=== PATIENT | male | born 1995 | race Caucasian/White ===

== ENCOUNTER → 2016-11-25 | Outpatient (CLI) | payer MEDICAID | LOC: CIMAGING 09:21 | PROVIDERS: ATTEND Physician Assistant | DX: D40.11 Neoplasm of uncertain behavior of right testis (principal) | CPT/HCPCS: 76870-PO ==

== ENCOUNTER → 2016-12-03 | Outpatient (CLI) | payer MEDICAID | LOC: FIMAGING 13:13 | PROVIDERS: ATTEND Internal Medicine Hematology & Oncology | DX: Z12.2 Encounter for screening for malignant neoplasm of respiratory organs (principal); C62.90 Malignant neoplasm of unspecified testis, unspecified whether descended or undescended ==

== ENCOUNTER → 2016-12-30 | Outpatient (CLI) | payer MEDICAID ==
[~2016-12-30] MED LIST: IOPAMIDOL (ISOVUE-300) 100 ML BTL IV ONE
== END ==
LOC: FIMAGING 12:31
PROVIDERS: ATTEND Internal Medicine Hematology & Oncology
DX: C62.90 Malignant neoplasm of unspecified testis, unspecified whether descended or undescended (principal)
CPT/HCPCS: Q9967

== ENCOUNTER 2017-03-01 20:16 | Emergency (ER) | payer MEDICAID ==
[2017-03-01 20:33] VITALS: RESP 16; TEMP 98.2
--- NOTE | 2017-03-01 21:06 | EDPHY ---
H & P Stated Complaint: cancer patient; feels dehydrated and anxious Time Seen by Provider: 03/01/17 20:52 HPI/ROS: CHIEF COMPLAINT: Feels dehydrated HISTORY OF PRESENT ILLNESS: This is a 21-year-old male undergoing chemotherapy for testicular cancer who presents concerned that he might be dehydrated. He also feels somewhat anxious, as if something is wrong. His last chemotherapy treatment was 1 week ago and he is due for another treatment tomorrow. He has had vomiting, which is usual for him during these treatments. He has not had diarrhea. He is being treated for thrush and reports a sore throat. He denies headache, cough, shortness of breath, chest pain, abdominal pain, back pain, joint pain, and dysuria. He has not had fever. REVIEW OF SYSTEMS: A ten point review of systems was performed and is negative with the exception of the items mentioned in the HPI. - Personal History Current Tetanus/Diphtheria Vaccine: No - Medical/Surgical History Hx Asthma: No Hx Chronic Respiratory Disease: Yes Hx Diabetes: No Hx Cardiac Disease: No Hx Renal Disease: No Hx Cirrhosis: No Hx Alcoholism: No Hx HIV/AIDS: No Hx Splenectomy or Spleen Trauma: No Other PMH: PSHx: orchiectomy. PMHx: testicular stage II, SAMREEN - Social History Smoking Status: Former smoker Additional Social History: He is here with his parents. He was a student but is taking time off. - Physical Exam Exam: General Appearance: Alert. Vital signs reviewed and normal. Head: Bald. Eyes: Pupils equal and round, no conjunctival injection, no discharge. Anicteric. ENT, Mouth: Mucous membranes are slightly dry, no oropharyngeal erythema or edema. No thrush visualized. Neck: No lymphadenopathy, supple. Respiratory: Lungs are clear to auscultation; no wheezes, rales, or rhonchi. Cardiovascular: Regular rate and rhythm; no murmur, rub, or gallop. Gastrointestinal: Abdomen is soft and nontender, no masses or organomegaly, bowel sounds normal. Skin: Warm and dry, no rashes on exposed skin, normal color. Back: Nontender to palpation over the thoracolumbar spine. No CVAT. Extremities: No lower extremity edema, no calf tenderness or swelling. Neurological: Alert and oriented. Moving all four extremities easily and equally. Psychiatric: Normal affect. Constitutional: Initial Vital Signs Temperature (C) 36.8 C 03/01/17 20:28 Heart Rate 68 03/01/17 20:28 Respiratory Rate 16 03/01/17 20:28 Blood Pressure 112/70 03/01/17 20:28 O2 Sat (%) 98 03/01/17 20:28 O2 Delivery Mode Room Air Home Medications: Medication Instructions Recorded BLEOMYCIN SULFATE 03/01/17 CISplatin 03/01/17 Etoposide Phosphate 03/01/17 Medical Decision Making ED Course/Re-evaluation: 10:10 p.m.. 1 L normal saline administered IV--I think it is reasonable to rehydrate this patient who has had nausea and vomiting secondary to chemotherapy. He did not have vomiting in the department. Labs reviewed. An reported the patient and family. They are reassured. Patient re-evaluated. He is sitting up in bed, smiling. He states that he feels much better and would like to go home. I feel that this is appropriate and he is being discharged in stable condition. Xavier's white blood cell count is 3.49, up from 2.6 on February 23. He is not febrile and I find no evidence of infection. Differential Diagnosis: I considered a differential diagnosis that includes but is not limited to neutropenic fever, nausea vomiting, dehydration, situational anxiety. - Data Points Laboratory Results: Laboratory Results 03/01/17 21:45 03/01/17 21:00 Departure - Departure Disposition: Home, Routine, Self-Care Clinical Impression: Dehydration, mild Condition: Good Instructions: Dehydration (ED) Additional Instructions: Keep your appointment tomorrow. Referrals: LELO CALDWELL [Other] - As per Instructions
[2017-03-01 21:27] LABS: ANION GAP 12 mEq/L (8-16); CALCIUM 9.7 mg/dL (8.5-10.4); CARBON DIOXIDE 23 mEq/l (22-31); CHLORIDE 104 mEq/L (97-110); CREATININE 0.7 mg/dL (0.7-1.3); GLOMERULAR FILTRATION RATE > 60; GLUCOSE 79 mg/dL (70-100); POTASSIUM 4.1 mEq/L (3.5-5.2); SODIUM 139 mEq/L (134-144)
[2017-03-01 21:47] LABS: ADD DIFF? YES; ADD MORPH? NO; ADD SCAN? NO; ATYPICAL LYMPHOCYTE FLAG 90 (0-99); FRAGMENT RBC FLAG 0 (0-99); HEMATOCRIT 37.7 % (40.0-51.0); HEMOGLOBIN 13.1 g/dL (13.7-17.5); LEFT SHIFT FLG 0 (0-99); LIPEMIA HEMOLYSIS FLAG 90 (0-99); MEAN CELL HEMOGLOBIN CONCENTR. 34.7 g/dL (32.4-36.7); MEAN CELL VOLUME 92.2 fL (81.5-99.8); MEAN PLATELET VOLUME 8.7 fL (8.7-11.7); PLATELET CLUMPS FLAG 10 (0-99); PLATELET COUNT 144 10^3/uL (150-400); RED BLOOD CELL COUNT 4.09 10^6/uL (4.40-6.38); RED CELL DISTRIBUTION WIDTH 13.8 % (11.5-15.2)
[2017-03-01 22:19] VITALS: BP 112/78; PULSE 62; O2SAT 95
[2017-03-01 22:19] LABS: PLATELET ESTIMATE DECREASED (ADEQ)
== END 2017-03-01 22:18 | disposition home or self-care (01) ==
DX: E86.0 Dehydration (principal); Z87.891 Personal history of nicotine dependence

== ENCOUNTER 2017-03-07 21:11 | Emergency (ER) | payer MEDICAID ==
[2017-03-07 21:19] VITALS: TEMP 98.2
[2017-03-07] MEDS ORDERED: NS 1,000 ML IV ONE ×2 (21:41→22:07)
[2017-03-07 21:58] LABS: % IMMATURE GRANULYOCYTES 0.4 % (0.0-1.1); ABSOLUTE IMMATURE GRANULOCYTES 0.02 10^3/uL (0.00-0.10); ADD DIFF? NO; ADD MORPH? NO; ADD SCAN? NO; ATYPICAL LYMPHOCYTE FLAG 0 (0-99); FRAGMENT RBC FLAG 0 (0-99); HEMOGLOBIN 14.8 g/dL (13.7-17.5); LEFT SHIFT FLG 0 (0-99); LIPEMIA HEMOLYSIS FLAG 90 (0-99); MEAN CELL HEMOGLOBIN CONCENTR. 35.2 g/dL (32.4-36.7); MEAN CELL VOLUME 90.9 fL (81.5-99.8); PLATELET CLUMPS FLAG 30 (0-99); PLATELET COUNT 141 10^3/uL (150-400); RED BLOOD CELL COUNT 4.62 10^6/uL (4.40-6.38); RED CELL DISTRIBUTION WIDTH 13.5 % (11.5-15.2)
[2017-03-07 22:07] LABS: ANION GAP 12 mEq/L (8-16); CARBON DIOXIDE 24 mEq/l (22-31); CHLORIDE 102 mEq/L (97-110); CREATININE 0.8 mg/dL (0.7-1.3); GLOMERULAR FILTRATION RATE > 60; GLUCOSE 87 mg/dL (70-100); POTASSIUM 4.2 mEq/L (3.5-5.2); SODIUM 138 mEq/L (134-144)
--- NOTE | 2017-03-07 22:12 | EDPHY ---
H & P Stated Complaint: dehydrated dark urine, last chemo Thursday, mild stomach discomfort Time Seen by Provider: 03/07/17 21:58 HPI/ROS: CHIEF COMPLAINT: Dehydration HISTORY OF PRESENT ILLNESS: The patient is a 21-year-old man with a history of testicular cancer status post orchiectomy with metastasis to lymph nodes. He is currently undergoing chemotherapy. He tends to get dehydrated with chemotherapy. He does not feel like drinking water. He was seen here a couple of weeks ago for the same and felt better after hydration. He denies vomiting or diarrhea. He states that his urine has been dark and he has not had much urine. He also states that his mouth is dry. He states that he feels anxious when he is dehydrated. He has received 500 cc IV fluids by nursing protocol states that he already feels much better. No dysuria. No hematuria. REVIEW OF SYSTEMS: Constitutional: See HPI denies: chills, fever, recent illness, recent injury EENTM: See HPI denies: blurred vision, double vision, nose congestion Respiratory: denies: cough, shortness of breath Cardiac: denies: chest pain, irregular heart rate, lightheadedness, palpitations Gastrointestinal/Abdominal: denies: abdominal pain, diarrhea, nausea, vomiting, blood streaked stools Genitourinary: denies: dysuria, frequency, hematuria, pain Musculoskeletal: denies: joint pain, muscle pain Skin: denies: lesions, rash, jaundice, bruising Neurological: denies: headache, numbness, paresthesia, tingling, dizziness, weakness Hematologic/Lymphatic: denies: blood clots, easy bleeding, easy bruising Immunologic/allergic: denies: HIV/AIDS, transplant EXAM: GENERAL: Well-appearing, well-nourished and in no acute distress. HEAD: Atraumatic, normocephalic. EYES: Pupils equal round and reactive to light, extraocular movements intact, sclera anicteric, conjunctiva are normal. ENT: Moderately dry mucous membranes, TMs normal, nares patent, oropharynx clear without exudates. Moist mucous membranes. NECK: Normal range of motion, supple without lymphadenopathy or JVD. LUNGS: Breath sounds clear to auscultation bilaterally and equal. No wheezes rales or rhonchi. HEART: Regular rate and rhythm without murmurs, rubs or gallops. ABDOMEN: Soft, nontender, normoactive bowel sounds. No guarding, no rebound. No masses appreciated. BACK: No CVA tenderness, no spinal tenderness, step-offs or deformities EXTREMITIES: Normal range of motion, no pitting or edema. No clubbing or cyanosis. NEUROLOGICAL: Cranial nerves II through XII grossly intact. Normal speech, normal gait. 5/5 strength, normal movement in all extremities, normal sensation PSYCH: Normal mood, normal affect. SKIN: Warm, dry, normal turgor, no visible rashes or lesions. Source: Patient Exam Limitations: No limitations - Personal History Current Tetanus/Diphtheria Vaccine: Unsure - Medical/Surgical History Hx Asthma: No Hx Chronic Respiratory Disease: Yes Hx Diabetes: No Hx Cardiac Disease: No Hx Renal Disease: No Hx Cirrhosis: No Hx Alcoholism: No Hx HIV/AIDS: No Hx Splenectomy or Spleen Trauma: No Other PMH: PSHx: R orchiectomy. PMHx: testicular stage II, SAMREEN - Family History Significant Family History: No pertinent family hx - Social History Smoking Status: Former smoker Alcohol Use: Sober Drug Use: None Constitutional: Initial Vital Signs Temperature (C) 36.8 C 03/07/17 21:17 Heart Rate 81 03/07/17 21:17 Respiratory Rate 15 03/07/17 21:17 Blood Pressure 111/81 H 03/07/17 21:17 O2 Sat (%) 95 03/07/17 21:17 O2 Delivery Mode Room Air Allergies/Adverse Reactions: meperidine [From Demerol] Allergy (Verified 03/07/17 21:16) Home Medications: Medication Instructions Recorded BLEOMYCIN SULFATE 03/01/17 CISplatin 03/01/17 Etoposide Phosphate 03/01/17 Ativan 03/07/17 Medical Decision Making ED Course/Re-evaluation: 11:00 p.m. the patient is feeling much better after hydration. His lab work is reassuring. He declines further workup or testing at this time and is eager to go home. Differential Diagnosis: Partial list of the Differential diagnosis considered include but were not limited to; dehydration, anxiety and although unlikely based on the history and physical exam, I also considered urinary tract infection, hematuria, gastroenteritis. I discussed these differential diagnoses and the plan with the patient as well as the usual and expected course. The patient understands that the diagnosis is provisional and that in medicine we are not always correct and that further workup is often warranted. Usual and customary warnings were given. All of the patient's questions were answered. The patient was instructed to return to the emergency department should the symptoms at all worsen or return, otherwise to followup with the physician as we discussed. - Data Points Laboratory Results: Laboratory Results 03/07/17 21:35 03/07/17 21:35 Medications Given: Discontinued Medications Sodium Chloride (Ns) 1,000 mls @ 0 mls/hr IV ONCE ONE PRN Reason: Wide Open Stop: 03/07/17 21:42 Last Admin: 03/07/17 21:53 Dose: 1,000 mls Sodium Chloride (Ns) 1,000 mls @ 0 mls/hr IV ONCE ONE; Wide Open PRN Reason: Protocol Stop: 03/07/17 22:08 Last Admin: 03/07/17 22:12 Dose: 1,000 mls Departure - Departure Disposition: Home, Routine, Self-Care Clinical Impression: Dehydration Condition: Fair Instructions: Dehydration (ED) Referrals: STONE,LORRAINE [Other] - As per Instructions
[2017-03-07 23:16] LABS: COLOR YELLOW; LEUKOCYTE ESTERASE,URINE NEGATIVE (NEGATIVE); NITRITE,URINE NEGATIVE (NEGATIVE)
[2017-03-07 23:31] VITALS: BP 118/62; PULSE 71; RESP 16; O2SAT 94
== END 2017-03-07 23:31 | disposition home or self-care (01) ==
DX: E86.0 Dehydration (principal); E86.9 Volume depletion, unspecified; Z87.891 Personal history of nicotine dependence

== ENCOUNTER 2018-06-05 18:39 | Emergency (ER) | payer OTHER ==
--- NOTE | 2018-06-05 19:19 | EDPHY ---
H & P Stated Complaint: red streak going up left arm to his chest. blood drawn 6days ago Time Seen by Provider: 06/05/18 19:11 HPI/ROS: CHIEF COMPLAINT: Left biceps pain HISTORY OF PRESENT ILLNESS: The patient is a 22 year old man who comes to the emergency department complaining of some pain in his left biceps region and axilla. No lumps or bumps. He thought that he noticed some streaking today but it is not currently visible. He had his blood drawn 6 days ago from that antecubital region. He also states that he may have slept on the awkwardly last night. He does not have any paresthesias or numbness or weakness. No neck pain. No headache. No fever. Severity: Mild Modifying factors: None REVIEW OF SYSTEMS: Constitutional: denies: chills, fever, recent illness, recent injury EENTM: denies: blurred vision, double vision, nose congestion Respiratory: denies: cough, shortness of breath Cardiac: denies: chest pain, irregular heart rate, lightheadedness, palpitations Gastrointestinal/Abdominal: denies: abdominal pain, diarrhea, nausea, vomiting, blood streaked stools Genitourinary: denies: dysuria, frequency, hematuria, pain Musculoskeletal: See HPI Skin: denies: lesions, rash, jaundice, bruising Neurological: denies: headache, numbness, paresthesia, tingling, dizziness, weakness Hematologic/Lymphatic: denies: blood clots, easy bleeding, easy bruising Immunologic/allergic: denies: HIV/AIDS, transplant 10 systems reviewed and negative except as noted EXAM: GENERAL: Well-appearing, well-nourished and in no acute distress. HEAD: Atraumatic, normocephalic. EYES: Pupils equal round and reactive to light, extraocular movements intact, sclera anicteric, conjunctiva are normal. ENT: TMs normal, nares patent, oropharynx clear without exudates. Moist mucous membranes. NECK: Normal range of motion, supple without lymphadenopathy or JVD. LUNGS: Breath sounds clear to auscultation bilaterally and equal. No wheezes rales or rhonchi. HEART: Regular rate and rhythm without murmurs, rubs or gallops. ABDOMEN: Soft, nontender, normoactive bowel sounds. No guarding, no rebound. No masses appreciated. BACK: No CVA tenderness, no spinal tenderness, step-offs or deformities EXTREMITIES: Left biceps pain, no palpable cords. No wounds. No erythema. Normal range of motion. Normal strength. Normal range of motion, no pitting or edema. No clubbing or cyanosis. NEUROLOGICAL: Cranial nerves II through XII grossly intact. Normal speech, normal gait. 5/5 strength, normal movement in all extremities, normal sensation , normal reflexes PSYCH: Normal mood, normal affect. SKIN: Warm, dry, normal turgor, no visible rashes or lesions. No visible streaking Source: Patient Exam Limitations: No limitations - Personal History Current Tetanus/Diphtheria Vaccine: Yes Current Tetanus Diphtheria and Acellular Pertussis (TDAP): Yes - Medical/Surgical History Hx Asthma: No Hx Chronic Respiratory Disease: Yes Hx Diabetes: No Hx Cardiac Disease: No Hx Renal Disease: No Hx Cirrhosis: No Hx Alcoholism: No Hx HIV/AIDS: No Hx Splenectomy or Spleen Trauma: No Other PMH: PSHx: R orchiectomy. PMHx: testicular stage II, SAMREEN - Family History Significant Family History: No pertinent family hx - Social History Smoking Status: Former smoker Alcohol Use: Sober Drug Use: None Constitutional: Initial Vital Signs Temperature (C) 36.8 C 06/05/18 18:42 Heart Rate 68 06/05/18 18:42 Respiratory Rate 16 06/05/18 18:42 Blood Pressure 112/42 L 06/05/18 18:42 O2 Sat (%) 96 06/05/18 18:42 O2 Delivery Mode Room Air Allergies/Adverse Reactions: meperidine [From Demerol] Allergy (Verified 06/05/18 18:46) Home Medications: Medication Instructions Recorded BLEOMYCIN SULFATE 03/01/17 CISplatin 03/01/17 Etoposide Phosphate 03/01/17 Ativan 03/07/17 Medical Decision Making - Diagnostics Imaging: Discussed imaging studies w/ thermite welder Radiologist ED Course/Re-evaluation: 8:15 p.m. We discussed the ultrasound results. The patient is reassured. I suspect that he has a muscle strain pinched nerve. He does not have any objective physical findings. We discussed [id number] exercises and indications for returning to emergency department. Differential Diagnosis: Partial list of the Differential diagnosis considered include but were not limited to; DVT, muscle strain nerve injury and although unlikely based on the history and physical exam, I also considered cellulitis thrombophlebitis. I discussed these differential diagnoses and the plan with the patient as well as the usual and expected course. The patient understands that the diagnosis is provisional and that in medicine we are not always correct and that further workup is often warranted. Usual and customary warnings were given. All of the patient's questions were answered. The patient was instructed to return to the emergency department should the symptoms at all worsen or return, otherwise to followup with the physician as we discussed. - Data Points Laboratory Results: Laboratory Results 06/05/18 19:20 06/05/18 19:20 Departure - Departure Disposition: Home, Routine, Self-Care Clinical Impression: Left upper arm pain Condition: Fair Instructions: Arm Pain (ED) Referrals: NONE *PRIMARY CARE P,. [Primary Care Provider] - As per Instructions MAILE BERGMAN [Medical Doctor] - As per Instructions
[2018-06-05 19:56] LABS: PLATELET COUNT 219 10^3/uL (150-400)
[2018-06-05 20:04] LABS: INR 0.95 (0.83-1.16); PROTIME(PATIENT) 12.9 SEC (12.0-15.0)
[2018-06-05 20:34] VITALS: BP 118/74
== END 2018-06-05 20:34 | disposition home or self-care (01) ==
DX: M79.622 Pain in left upper arm (principal)